=== PATIENT | male | born 1975 | race Caucasian/White ===

== ENCOUNTER 2016-10-04 09:06 | Emergency (ER) | payer OTHER ==
[2016-10-04] MEDS ORDERED: LATUDA20 M1 PO (09:10)
[2016-10-04] MEDS ORDERED: CYCLOBENZAPRINE10 M1 PO (10:46)
[2016-10-04] MEDS ORDERED: IBUPROFEN600 M1 PO (10:46)
[2016-10-04] MEDS ORDERED: NORCO 5-325 TA1 EACH PO (10:46)
== END 2016-10-04 11:00 ==
LOC: EDMED 09:06
DX: S13.4XXA Sprain of ligaments of cervical spine, initial encounter (principal); M51.26 Other intervertebral disc displacement, lumbar region; V49.40XA Driver injured in collision with unspecified motor vehicles in traffic accident, initial encounter; Y92.410 Unspecified street and highway as the place of occurrence of the external cause; F17.200 Nicotine dependence, unspecified, uncomplicated